=== PATIENT | male | born 1945 | race Caucasian/White ===

== ENCOUNTER 2021-12-07 09:48 | Outpatient (CLI) | payer MEDICARE, BC, SELFPAY ==
--- OUTSIDE RECORDS SUMMARY | 2021-12-07 09:51 | XMS_ITS | Clinical Summary ---
:1945 Author Organization [email or web address] [facility] [place] [address] Care Team Providers Name Role Phone Idris Merritt MD Primary Care Provider Allergies Active Allergy Reactions Severity Noted Date Comments Vardenafil Visual Disturbances 04/17/2010 Reported 04/17/2010; occurred 3 times.......... ...... Medications Medication Sig Dispensed Refills Start End Date Status Date multivitamin (MVI) tablet Take 1 tablet by 0 Active mouth once 0 daily. blood sugar diagnostic Dispense test 100 Each 3 Active (ACCU-CHEK KATRINA) strips covered 4 stripIndications: Type II by the patient or unspecified type insurance. Test diabetes mellitus without 1times per day. mention of complication, not stated as uncontrolled CPAPIndications: autoCPAP, heated 1 Device 0 Active Obstructive sleep apnea humidifier, 4 (adult) (pediatric) mask, headgear, filters and tubing. Pressure: 4-15cm/H2O Length of Need: 99 metFORMIN (GLUCOPHAGE) TAKE 1 TABLET BY 180 tablet 2 Active 1,000 mg MOUTH TWICE 7 tabletIndications: DAILY WITH MEALS Diabetes mellitus without complication (HC) amLODIPine (NORVASC) 5 mg Take 1 tablet by 60 tablet 0 01 Active tabletIndications: HTN mouth 2 times 7 (hypertension) daily. atorvastatin (LIPITOR) 20 Take 1 tablet by 90 tablet 0 01 Active mg tabletIndications: mouth once 8 Pure hypercholesterolemia daily. lisinopril (PRINIVIL; TAKE 1 TABLET BY 30 tablet 0 Active ZESTRIL) 40 mg MOUTH EVERY DAY 8 tabletIndications: HTN (hypertension) glipiZIDE TAKE 1 TABLET BY 30 tablet 0 Act [place] extended-release MOUTH EVERY DAY 8 (GLUCOTROL XL) 10 mg BEFORE A MEAL Extended-Release tabletIndications: Diabetes mellitus without complication (HC) furosemide (LASIX) 20 mg Take 0.5 tablets 45 tablet 3 12/17/19 1 Active tabletIndications: by mouth once 8 Bilateral lower extremity daily if needed edema for Other (Specify). CPAPIndications: AUGUST Replacement CPAP 1 Device 11 Active (obstructive sleep apnea) machine for home 0 use at pressure: 4-11 cmw , Heated humidifier x 1 q 5 yr, Humidifier chamber x 1 q 6 mo, Full face mask x1 q 3mos, with cushion x 2 q mo, chin strap q 2 mo, Heated tubing x 1 q 3 mo, Headgear x 1 q 6 mo, Filters: Disposable x 2 q mo non-disposable filters x1 q 6mo, Length of Need: 99 months, Frequency of use: Daily sildenafil citrate Take 1 tablet by 0 Active (VIAGRA) 25 mg tablet mouth once daily 0 if needed for Erectile Dysfunction. Take 30min to 4 hours before sexual activity. Max 100mg/24hr sotaloL (BETAPACE) 120 mg Take 1 Tablet 180 Tablet 3 Active tabletIndications: (120 mg) by 1 Ventricular tachycardia mouth every 12 (HC), Fitting or hours. adjustment of automatic implantable cardioverter-defibrillato r ranolazine (RANEXA) 500 Take 2 Tablets 360 tablet. 3 Active mg Controlled-Release (1,000 mg) by 1 tabletIndications: mouth 2 times Ventricular tachycardia daily. (HC) dilTIAZem CD (CARDIZEM Take 1 Capsule 90 capsule. 3 Active CD) 120 mg extended (120 mg) by 1 release 24 hr mouth once capsuleIndications: daily. Ventricular tachycardia (HC) Active Problems Problem Noted Date Adenomatous colon polyp 01/09/2016 Overview: Colonoscopy 01/2016 polyps repeat in 5 y ears Hyperlipidemia, unspecified 12/27/2015 ICD (implantable cardioverter-defibrillator) in place 05/22/2015 Ventricular tachycardia 05/12/2015 Overview: - 05/15/15 s/p EPS with VT ablation and du al chamber ICD Diabetes mellitus type 2 in obese 02/07/2015 AUGUST 11/08/2013 AHI- 23 12/04/2013 CAD (coronary artery disease) 10/29/2013 Cardiomyopathy 10/29/2013 ED (erectile dysfunction) 09/23/2013 Herpes, genital 09/11/2012 Overview: famvir 1000 mg three times daily 10 days ; to take same three times daily 3 days if/when recurrence. 09/11/2012 Psoriasis 09/07/2012 GERD (gastroesophageal reflux disease) 09/07/2012 Neuropathy 12/23/2011 Hx MRSA infection 08/26/2011 Bunion 08/26/2011 Overview: Left foot Other seborrheic keratosis 08/26/2011 Overview: Right cheek Left elbow 12/23/2011 Lung nodule 01/31/2009 Overview: Calcified Granuloma on CT Chest 11/2008. Apparently stable. 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 11/29/2008 Routine general medical examination at a [facility] y 08/10/2008 09/23/2013 Overview: colonoscopy 2005 Recheck 10 yrs Unspecified essential hypertension 10/14/200601/19 HYPERCHOLESTEROLEMIA 10/14/2006 12/27/2015 DIABETES 02/25/2002 02/07/2015 Immunizations Name Administration Dates Next Due Influenza, High-dose Inactivated 01/23/2015 Influenza, IIV3 (Age >=3 years) 12/23/2011 Influenza,CCIIV4 PRESERV FREE 01/17/2017 Pneumococcal conj 13-Valent (Prevnar 13) 04/25/2015 Tdap 08/10/2008 Zoster (Zostavax-ZVL, live) 01/31/2009 Family History Medical History Relation Name Comments Diabetes Brother [place] Stroke Brother [place] April 2010 Cancer-prostate Father [place] Diabetes Father [place] Anesthesia Problem No Family History Blood Disease No Family History Relation Name Status Comments Brother Vincent Alive Father Vincent (Age 66) Mother Keesha Alive Social History Tobacco Use Types Packs/Day Years Used Date Never Smoker Smokeless Tobacco: Never Used Tobacco Cessation: Counseling Given: Yes Alcohol Use Standard Drinks/Week Comments Yes 2 (1 standard drink = 0.6 oz pure alcoho l) 2-3 beers/week Alcohol Habits Answer Date Recorded How often do you have a drink containing alcohol? Not asked How many drinks containing alcohol do you have on a Not aske d typical day when you are drinking? How often do you have six or more drinks on one Not asked occasion? Comment: 2-3 beers/week 01/23/2016 Sex Assigned at Date Recorded Not on file Obstetrics History Last Filed Vital Signs Vital Sign Reading Time Taken Comments Blood Pressure 108/64 02/13/2021 11:24 AM HOME LENDING OFFICER Pulse 60 02/13/2021 11:24 AM HOME LENDING OFFICER Temperature 36.4 ??C (97.6 ??F) 05/11/2019 11:21 AM HOME LENDING OFFICER Respiratory Rate 18 05/17/2015 11:21 AM HOME LENDING OFFICER Oxygen Saturation 97% 01/18/2020 3:01 PM CDT Inhaled Oxygen Concentration - - Weight 99.3 kg (219 lb) 02/13/2021 11:24 AM HOME LENDING OFFICER Height 182.9 cm (6') 02/13/2021 11:24 AM HOME LENDING OFFICER Body Mass Index 29.7 02/13/2021 11:24 AM HOME LENDING OFFICER Plan of Treatment Upcoming Encounters Date Type Specialty Care Team Description 12/07/2021 Orders Only 01/15/2022 Cardiac Device Check Health Maintenance Due Date Last Done Comments Hepatitis C screening for age [birth year]11/24[birth year]1965 18-79 Mammogram for age 45-75 11/24/1992 Zoster (shingles) series for age 1203/28/2009 01/31/2009 50+ (2 of 3) DEXA/DXA scan for age 65+ 11/24/2012 Pneumococcal series for age 65+ (2 04/25/2016 04/25/2015 - PPSV23 or PCV20) Depression screening for age 12+ 07/11/2017 07/11/2016, 06/2015, 06/08/2015, Additional history exists Medicare Wellness for age 65+ 07/11/2017 07/11/2016 Tetanus booster 08/10/2018 08/10/2008 Colonoscopy through age 75 01/07/2019 01/08/2016, 6, 01/08/2016, Additional history exists COVID-19 vaccine series (3 - 12/15/2020 07/15/2020, 021 Booster for Pfizer series) Lipids for age 45-75 07/09/2021 07/09/2016, 01/01/2016, 07/04/2014, Additional history exists Influenza for age 65+ 12/06/2021 01/17/2017, 01/08/2016 (Completed outside of [facility]), 01/23/2015, Additional history exists BMI (ht and wt on same day) for 02/13/2022 02/13/2021, 12/06, age 18+ 03/25/2017, Additional history exists Tdap Completed 08/10/2008 Medical Devices Implanted Type Area Compliance Attorney Device Shelf Model / Identifier Expiration Date Ser ial / Lot Dual Chamber Mri Conditional Icd ICD Only Medtronic EVERA MRI XT [id number] / Implanted: 05/15/2015 by Sera Joseph MD (Quantity not on fi le) [id number] / Results Not on filefrom Last 3 Months Additional Health Concerns Infection Onset Date Last Indicated MRSAComment: Left Great Toe 10/06/08 at [facility] 10/10/2008 10/10/2008 [place] Insurance Payer Benefit Plan / Subscriber ID Effective Dates Phone Addre ss Type Group MEDICARE PART A MEDICARE PART A [id number] 2013-[employer] ATTN: CLAIMS - HB USE ONLY HB ONLY t [address] [place] [address] MEDICARE - PB MEDICARE PB [id number] 2019-Presen ATTN : CLAIMS USE ONLY ONLY t [address] [place] [address] BLUE CROSS BLUE CROSS OF [id number] 2019-Presen [address] [place] [phone] [phone] (Home) [phone] Mia [address]IRBY N 8 (Work) [phone] Advance Directives Latest Code Status on File Code Status Date Activated Date Inactivated Comments Full Code 05/12/2015 10:04 AM 05/17/2015 7:00 PM Full Code 05/11/2015 5:18 PM 05/12/2015 10:04 AM Care Teams Video Game Script Writer Relationship Specialty Start Date End Date Idris Merritt MD PCP - General Family Practice 06/24/171999 [address] [facility] [id number]
== END 2021-12-07 09:49 | disposition home or self-care (01) ==
LOC: RAD 09:50
PROVIDERS: PCP Family Medicine; Visit Provider Nurse Practitioner Family
DX: I49.3 Ventricular premature depolarization (principal); I47.2 Ventricular tachycardia; I51.7 Cardiomegaly; I34.0 Nonrheumatic mitral (valve) insufficiency
CPT/HCPCS: 93306

== ENCOUNTER 2021-12-25 10:21 | Outpatient (CLI) | payer MEDICARE, BC, SELFPAY ==
--- OUTSIDE RECORDS SUMMARY | 2021-12-25 08:12 | XMS_ITS | Clinical Summary ---
:1945 Author Organization [employer] [facility] [place] [address] Care Team Providers Name Role Phone Idris [...] Active tabletIndications: (120 mg) by 1 Ventricular tachycardia, mouth every 12 Fitting or adjustment of hours. automatic implantable cardioverter-defibrillato r ranolazine (RANEXA) 500 Take 2 Tablets 360 tablet. 3 Active mg Controlled-Release (1,000 mg) by 1 tabletIndications: mouth 2 times Ventricular tachycardia daily. dilTIAZem CD (CARDIZEM Take 1 Capsule 90 capsule. 3 Active CD) 120 mg extended (120 mg) by 1 release 24 hr mouth once capsuleIndications: daily. Ventricular tachycardia Active Problems Problem Noted Date Adenomatous colon [...] 11/29/2008 Routine general medical examination at a [facility] y 08/10/2008 09/23/2013 Overview: colonoscopy 2005 Recheck 10 yrs Unspecified essential hypertension 10/14/200601/19 HYPERCHOLESTEROLEMIA 10/14/2006 12/27/2015 DIABETES 02/25/2002 02/07/2015 Encounters Date Type Specialty Care Team Description 12/14/2021 Telephone Brittany Joseph MD Re sults 12/07/2021 Orders Only <No scans attac hed> from Last 3 Months Immunizations Name Administration Dates Next Due Influenza, High-dose Inactivated 01/23/2015 Influenza, IIV3 (Age >=3 years) 12/23/2011 Influenza,CCIIV4 PRESERV FREE 01/17/2017 Pneumococcal conj 13-Valent (Prevnar 13) 04/25/2015 Tdap 08/10/2008 Zoster (Zostavax-ZVL, live) 01/31/2009 Family History Medical History Relation Name Comments Diabetes Brother [place] Stroke Brother [place] April 2010 Cancer-prostate Father [place] Diabetes Father [place] Anesthesia Problem No Family History Blood Disease No Family History Relation Name Status Comments Brother [place] Alive Father [place] (Age 66) Mother Keesha Alive Social History [...] Comments Blood Pressure 108/64 02/13/2021 11:24 AM WORKDAY MANAGER Pulse 60 02/13/2021 11:24 AM WORKDAY MANAGER Temperature 36.4 ??C (97.6 ??F) 05/11/2019 11:21 AM WORKDAY MANAGER Respiratory Rate 18 05/17/2015 11:21 AM WORKDAY MANAGER Oxygen Saturation 97% 01/18/2020 3:01 PM CDT Inhaled Oxygen Concentration - - Weight 99.3 kg (219 lb) 02/13/2021 11:24 AM WORKDAY MANAGER Height 182.9 cm (6') 02/13/2021 11:24 AM WORKDAY MANAGER Body Mass Index 29.7 02/13/2021 11:24 AM WORKDAY MANAGER Plan of Treatment Upcoming Encounters Date Type Specialty Care Team Description 01/15/2022 Cardiac Device Check Health Maintenance Due [...] 65+ 12/06/2021 01/17/2017, 01/08/2016 (Completed outside of [facility]), 01/23/2015, Additional history exists BMI (ht and wt on same day) for 02/13/2022 02/13/2021, 12/06, age 18+ 03/25/2017, Additional history exists Tdap Completed 08/10/2008 Medical Devices Implanted Type Area Binder Lockstitch Device Shelf Model / Identifier Expiration Date Ser ial / Lot Dual Chamber Mri Conditional Icd ICD Only Medtronic EVERA MRI XT [id number] / Implanted: 05/15/2015 by Brittany Joseph MD (Quantity not on fi le) [id number] / Procedures Procedure Name Priority Date/Time Associated Diagnosis Comme nts ECHO COMPLETE WO Routine 12/07/2021 10:30 AM PVC (premature Re sults for this CONTRAST CDT ventricular procedure are i n contraction) the results Cardiomyopathy, section. unspecified type (HC) from Last 3 Months Results ECHO COMPLETE WO CONTRAST (12/07/2021 10:30 AM CDT) P athologist Signature AORTIC VALVE 5 mmHg MEAN PG EJECTION 55 % FRACTION PEAK TR 2.6 m/s VELOCITY LVEDD 5.9 cm EJECTION 55 - 60% FRACTION Anatomical Region Laterality Modality HEART Ultrasound Specimen (Source) Anatomical Collection Method Collection Time Re ceived Time Location / / Volume Laterality 12/07/2021 10:05 AM CDT Narrative 12/07/2021 10:56 AM CDT ECHOCARDIOGRAM HUMBERTO BLACKWELL ? Accessi on#: ?? [id number] : ?1945 76 years Study Date: ?? 12/07/2021 10:05:44 AM Gender: M ?BP: ? 133/73 mmHg Height: 183.00 cm ?BSA: ?2.20 m? ?? Weight: 98.00 kg ? Tech: ? MJW ? Referring MD: BRITTANY JOSEPH Site: ? [facility] Reading Location: Mobile[facility] Procedure: 2D, Color Doppler and Spectra l Doppler. Indication for study: PVC (premature franky tricular contraction) [I49.3 (ICD-10-CM)] Cardiomyopathy, unspecified type (HC) [I 42.9 (ICD-10-CM)] Cardiac Rhythm: Regular and with prematu re ventricular contractions.Study quality: Good. Final Impressions: 1. Mildly increased LV size, borderline wall thickness, normal global systolic function with an estimated EF of 55 - 60%. 2. Grade 2 pattern of LV diastolic fill ing. 3. Mildly enlarged left atrium. 4. The aortic valve is normal, no steno sis and no regurgitation. 5. The mitral valve is normal, trace mi tral regurgitation. Chamber Sizes and Function Mildly increased left ventricular size, borderline wall thickness, normal global systolic function with an estimated EF of 55 - 60%. No definite resting regional wall motion abnormality seen. Left atria l size is mildly enlarged. Right ventric ular cavity size is normal, global systolic RV function is normal. RV wall thickness is normal. The right atrium is normal. Right atrial volume index is 19 ml/m? ??. Right atrial area is 14 cm? ??. The pulmonary artery is of normal size and origin. The sinus of Valsalva is normal sized. The ascending aorta is normal sized. Valves, RV Pressures and Diastolic Funct ion The aortic valve is normal in structure, no stenosis and no regurgitation. The mitral valve is normal in structure, trace mitral regurgitation. Moderate mitral annular calcification is present. Spectral Doppler shows Grade 2 pattern of LV sadiq stolic filling. The tricuspid valve is normal in structure. Tricuspid regurgitation is mild regurgitation. The tricuspid regurgitant velocity is 2.6 m/s, the romero mated right ventricular systolic pressur e is 27 mmHg plus right atrial pressure. The pulmonic valve is normal. Trace pulmonary regurgitation. Masses, Effusion, Shunts There is no pericardial effusion. The in ferior vena cava is normal sized, respiratory size variation greater than 50%. No left to right shunting was detected by limited color flow Doppler interrogation of the interatrial septum. MEASUREMENTS AND CALCULATIONS 2-D Measurements and LV Function: LVID (d) 5.9 cm LV FS% (2D) ?? 26 % LVID (s) 4.3 cm LVOT diameter 2.5 cm IVS (d) ??1.2 cm HR ?80 bpm LVPW (d) 0.9 cm LA Vol index ??35 ml/m2 Ao Sinus 3.3 cm RA Vol index ??19 ml/m2 Asc Ao ?? 3.8 cm RA area ? 14 cm? ?? LA ? 4.3 cm RV Max 4C (d) 3.8 cm Diastology: Mitral ?Tissue Doppler ?Pulmonary veins E Peak 0.9 m/s ??e', Septum ? 0.05 m /s Pulm s ?60.3 cm/s A Peak 0.8 m/s ??e', Lateral ?0.10 m /s Pulm d ?70.2 cm/s E/A ?1.2 ?E/e' Average ?? 12. 39 ?Pulm s/d ratio ??0.86 DT ? 209 msec IVRT ?? 91 msec Aortic Valve: Vmax ? 1.3 m/s ??MIRI (V) ?? 3.14 cm? ?? VTI ?0.35 m ?? MIRI (I ) ?? 3.13 cm? ?? LVOT V max ? 0.9 m/s ??Max PG ?7 mmHg LVOT VTI ? 0.22 m ?? Mean PG ? ? 5 mmHg SV ? 109 ml ?? Dim In dex 0.64 SV index ? 49 ml/m? ?? CO ?8.7 l/min AV Ejection Time 0.36 sec CI ? 3.9 l/min/m? ?? AV Flow Rate ? 304 ml/s Mitral Valve: MVA ?3.6 cm? ?? MV P 1/2 61 msec Tricuspid Valve and estimated PA pressur es: TR Vmax 2.6 m/s TAPSE 2.5 cm TR maxG 27 mmHg . This study was interpreted by an [facility] redited facility. CC: [facility]. ??Final ?? Procedure Note Darvin Rizzo MD - 12/07/2021 ECHOCARDIOGRAM HUMBERTO BLACKWELL : 1945 76 years Study Date: 2021 10:05:44 AM Gender: M BP: 133/73 mmHg Height: 183.00 cm BSA: 2.20 m? ?? Weight: 98.00 kg Tech: KAE Referring MD: BRITTANY JOSEPH Site: [facility] Reading Location: Mobile[facility] Procedure: 2D, Color Doppler and Spectra l Doppler. Indication for study: PVC (premature franky tricular contraction) [I49.3 (ICD-10-CM)] Cardiomyopathy, unspecified type (HC) [I 42.9 (ICD-10-CM)] Cardiac Rhythm: Regular and with prematu re ventricular contractions.Study quality: Good. Final Impressions: 1. Mildly increased LV size, borderline wall thickness, normal global systolic function with an estimated EF of 55 - 60%. 2. Grade 2 pattern of LV diastolic fill ing. 3. Mildly enlarged left atrium. 4. The aortic valve is normal, no steno sis and no regurgitation. 5. The mitral valve is normal, trace mi tral regurgitation. Chamber Sizes and Function Mildly increased left ventricular size, borderline wall thickness, normal global systolic function with an estimated EF of 55 - 60%. No definite resting regional wall motion abnormality seen. Left atrial size is mildly enlarged. Right ventricular cavity size is normal, global systolic RV function is normal. RV wall thickness is normal. The right atrium is normal. Right atrial volume index is 19 ml/m? ??. Right atrial area is 14 cm? ??. The pulmonary artery is of normal size and origin. The sinus of Valsalva is normal sized. The ascending aorta is normal sized. Valves, RV Pressures and Diastolic Funct ion The aortic valve is normal in structure, no stenosis and no regurgitation. The mitral valve is normal in structure, trace mitral regurgitation. Moderate mitral annular calcification is present. Spectral Doppler shows Grade 2 pattern of LV diastolic filling. The tricuspid valve is normal in structure. Tricuspid regurgitation is mild regurgitation. The tricuspid regurgitant velocity is 2.6 m/s, the estimated right ventricular systolic pressure is 27 mmHg plus right atrial pr essure. The pulmonic valve is normal. Trace pulmonary regurgitation. Masses, Effusion, Shunts There is no pericardial effusion. The in ferior vena cava is normal sized, respiratory size variation greater than 50%. No left to right shunting was detected by limited color flow Doppler interrogation of the interatrial septum. MEASUREMENTS AND CALCULATIONS 2-D Measurements and LV Function: LVID (d) 5.9 cm LV FS% (2D) 26 % LVID (s) 4.3 cm LVOT diameter 2.5 cm IVS (d) 1.2 cm HR 80 bpm LVPW (d) 0.9 cm LA Vol index 35 ml/m2 Ao Sinus 3.3 cm RA Vol index 19 ml/m2 Asc Ao 3.8 cm RA area 14 cm? ?? LA 4.3 cm RV Max 4C (d) 3.8 cm Diastology: Mitral Tissue Doppler Pulmonary veins E Peak 0.9 m/s e', Septum 0.05 m/s Pulm s 60.3 cm/s A Peak 0.8 m/s e', Lateral 0.10 m/s Pulm d 70.2 cm/s E/A 1.2 E/e' Average 12.39 Pulm s/d rati o 0.86 DT 209 msec IVRT 91 msec Aortic Valve: Vmax 1.3 m/s MIRI (V) 3.14 cm? ?? VTI 0.35 m MIRI (I) 3.13 cm? ?? LVOT V max 0.9 m/s Max PG 7 mmHg LVOT VTI 0.22 m Mean PG 5 mmHg SV 109 ml Dim Index 0.64 SV index 49 ml/m? ?? CO 8.7 l/min AV Ejection Time 0.36 sec CI 3.9 l/min/m ? ?? AV Flow Rate 304 ml/s Mitral Valve: MVA 3.6 cm? ?? MV P 1/2 61 msec Tricuspid Valve and estimated PA pressur es: TR Vmax 2.6 m/s TAPSE 2.5 cm TR maxG 27 mmHg . This study was interpreted by an [facility] facility. CC: [facility]. Final Brittany Joseph MD ECHO ORD from Last 3 Months Additional Health Concerns Infection Onset Date Last Indicated MRSAComment: Left Great Toe 10/06/08 at [facility] 10/10/2008 10/10/2008 [place] Insurance Payer Benefit Plan / Subscriber ID Effective Dates Phone Addre ss Type Group MEDICARE PART A MEDICARE PART A [id number] 2013-Presen ATTN: CLAIMS - HB USE ONLY HB ONLY t [address] [place] [address] MEDICARE - PB MEDICARE PB [id number] 2019-Presen ATTN : CLAIMS USE ONLY ONLY t [address] [place] [address] BLUE CROSS BLUE CROSS OF [id number] 2019-Presen [address] [facility] [place] [place] [address] [phone] (Home) [phone] Mia [address] (Work) [phone] Advance Directives Latest Code Status on File Code Status Date Activated Date Inactivated Comments Full Code 05/12/2015 10:04 AM 05/17/2015 7:00 PM Full Code 05/11/2015 5:18 PM 05/12/2015 10:04 AM Care Teams Low Altitude Air Defense Officer Relationship Specialty Start Date End Date Idris Merritt MD PCP - General Family Practice 06/24/171999 [place] [id number]
[2021-12-25 11:04] LABS: Albumin* 4.4 g/dL (3.3-5.0); Chloride* 103 mmol/L (96-114)
[2021-12-25 11:05] LABS: Potassium* 4.6 mmol/L (3.6-5.1); Sodium* 139 mmol/L (135-149)
[2021-12-25 11:07] LABS: Bilirubin Total* 0.7 mg/dL (0.1-1.5); Blood Urea Nitrogen* 19 mg/dL (7-30); Carbon Dioxide* 27 mmol/L (20-32); Cholesterol* 137 mg/dL (90-199); Creatinine* 1.1 mg/dL (0.5-1.5); Estimated Glomerular Filt Rate 70 ml/min; Total Protein* 6.5 g/dL (6.0-8.3)
[2021-12-25 11:08] LABS: Alanine Aminotransferase* 18 U/L (4-50); Alkaline Phosphatase* 105 U/L (40-150); Aspartate Amino Transferase* 20 U/L (12-35); Calcium* 9.2 mg/dL (8.4-10.6); Glucose* 198 mg/dL (60-115); HDL Cholesterol* 65 mg/dL (>=40); LDL Cholesterol Calculated 50 mg/dL (<100); Triglycerides* 109 mg/dL (40-149)
[2021-12-25 11:12] LABS: Creatinine Urine 71.3 mg/dL
[2021-12-25 11:16] LABS: Microalbumin Creatinine Ratio 50 mg/g (0-30); Microalbumin Urine 4 mg/dL
[2021-12-25 11:35] LABS: PSA Screen* < 0.06 ng/mL (0.10-4.00)
== END 2021-12-25 10:22 | disposition home or self-care (01) ==
PROVIDERS: PCP Family Medicine; Visit Provider Family Medicine
DX: Z00.00 Encounter for general adult medical examination without abnormal findings (principal); E78.5 Hyperlipidemia, unspecified; C61 Malignant neoplasm of prostate; E11.9 Type 2 diabetes mellitus without complications; I10 Essential (primary) hypertension; R68.82 Decreased libido
CPT/HCPCS: 80053; 80061; 82043; 82570; 84153

== ENCOUNTER 2022-12-26 08:26 | Outpatient (CLI) | payer MEDICARE, SELFPAY | END 2022-12-26 08:27 | disposition home or self-care (01) | LOC: NFLDREF 12-30 13:05 | PROVIDERS: PCP Family Medicine; Referring Provider Family Medicine; Visit Provider Family Medicine | DX: E78.5 Hyperlipidemia, unspecified (principal); R53.83 Other fatigue; E11.9 Type 2 diabetes mellitus without complications; C61 Malignant neoplasm of prostate | CPT/HCPCS: 80053; 80061; 82043; 82570; 84153; 84443 ==

== ENCOUNTER 2023-10-06 07:51 | Outpatient (CLI) | payer MEDICARE, SELFPAY ==
--- OUTSIDE RECORDS SUMMARY | 2023-10-06 07:55 | XMS_ITS | Clinical Summary ---
Author Organization [facility] Address [place], [place] [address] Care Team Providers Care Technical Solution Architect Name Role Phone Idris Merritt MD Primary Care Provider [phone] Allergies Active Allergy Reactions Criticality Noted Date Comments Vardenafil Visual Disturbances 04/17/2010 Reported 04/17/2010; occurred 3 times................ Medications Medication Sig Dispensed Refills Start Date End Date Status multivitamin (MVI) tablet Take 1 tablet by mouth once daily. 0 0 Active blood sugar diagnostic (ACCU-CHEK KATRINA) stripIndications:Type II or unspecified type diabetes mellitus without mention of complication, not stated as uncontrolled Dispense test strips covered by the patient insurance. Test 1times per day. 100 Each 3 4 Active metFORMIN (GLUCOPHAGE) 1,000 mg tabletIndications:Diabete s mellitus without complication (HC) TAKE 1 TABLET BY MOUTH TWICE DAILY WITH MEALS 180 tablet 2 7 Active amLODIPine (NORVASC) 5 mg tabletIndications:HTN (hypertension) Take 1 tablet by mouth 2 times daily. 60 tablet 7 Active atorvastatin (LIPITOR) 20 mg tabletIndications:Pure hypercholesterolemia Take 1 tablet by mouth once daily. 90 tablet 8 Active lisinopril (PRINIVIL; ZESTRIL) 40 mg tabletIndications:HTN (hypertension) TAKE 1 TABLET BY MOUTH EVERY DAY 30 tablet 8 Active glipiZIDE extended-release (GLUCOTROL XL) 10 mg Extended-Release tabletIndications:Diabete s mellitus without complication (HC) TAKE 1 TABLET BY MOUTH EVERY DAY BEFORE A MEAL 30 tablet 8 Active furosemide (LASIX) 20 mg tabletIndications:Bilater al lower extremity edema Take 0.5 tablets by mouth once daily if needed for Other (Specify). 45 tablet 3 8 Active sildenafil citrate (VIAGRA) 25 mg tablet Take 1 tablet by mouth once daily if needed for Erectile Dysfunction. Take 30min to 4 hours before sexual activity. Max 100mg/24hr 0 0 Active CPAPIndications:Obstructi ve sleep apnea CPAP machine for home use at pressure: 11 cmw , Heated humidifier x 1 q 5 yr, Humidifier chamber x 1 q 6 mo, Full face mask x1 q 3mos, with cushion x 1 q mo, Heated tubing x 1 q 3 mo, Headgear x 1 q 6 mo, Filters: Disposable x 2 q mo non-disposable filters x1 q 6mo, Length of Need: 99 months, Frequency of use: Daily 1 Each 11 3 Active dilTIAZem CD (CARDIZEM CD) 120 mg extended release 24 hr capsuleIndications:Ventri cular tachycardia (HC) Take 1 Capsule (120 mg) by mouth once daily. 90 Capsule 3 3 Active ranolazine (RANEXA) 500 mg Controlled-Release tabletIndications:Ventric ular tachycardia (HC) Take 1 Tablet (500 mg) by mouth two times daily. 180 Tablet 3 3 Active sotaloL (BETAPACE) 120 mg tabletIndications:Ventric ular tachycardia (HC),Fitting or adjustment of automatic implantable cardioverter-defibrillato r Take 1 Tablet (120 mg) by mouth every 12 hours. 180 Tablet 3 3 Active Active Problems Problem Noted Date Diagnosed Date Adenomatous colon polyp 01/09/2016 Overview: Colonoscopy 01/2016 polyps repeat in 5 years Hyperlipidemia, unspecified 12/27/2015 ICD (implantable cardioverter-defibrillator) in place 05/22/2015 Ventricular tachycardia 05/12/2015 Overview: - 05/15/15 s/p EPS with VT ablation and dual chamber ICD Diabetes mellitus type 2 in obese 02/07/2015 AUGUST 11/08/2013 AHI- 23 12/04/2013 CAD (coronary artery disease) 10/29/2013 Cardiomyopathy 10/29/2013 ED (erectile dysfunction) 09/23/2013 Herpes, genital 09/11/2012 Overview: famvir 1000 mg three times daily 10 days; to take same three times daily 3 days if/when recurrence. 09/11/2012 Psoriasis 09/07/2012 GERD (gastroesophageal reflux disease) 3 Neuropathy 12/23/2011 Hx MRSA infection 08/26/2011 Bunion 08/26/2011 Overview: Left foot Other seborrheic keratosis 08/26/2011 Overview: Right cheek Left elbow 12/23/2011 Lung nodule 01/31/2009 Overview: Calcified Granuloma on CT Chest 11/2008. Apparently stable. 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 11/29/2008 Routine general medical exam ination at a health care facility 08/10/2008 09/23/2013 Overview: colonoscopy 2004 Recheck 10 yrs Unspecified essential hypertension 10/14/2006 01/19/2015 HYPERCHOLESTEROLEMIA 10/14/2006 016 DIABETES 02/25/2002 02/07/2015 Encounters Date Type Department Care Team Description 09/05/2023 Telephone [facility] [address] [place] [address] Sera Joseph MD Diagnostic Testing from Last 3 Months Immunizations Name Administration Dates Next Due Influenza, High-dose Inactivated 01/23/2015 Influenza, IIV3 (Age >=3 years) 12/23/2011 Influenza,CCIIV4 PRESERV FREE 01/17/2017 Pneumococcal conj 13-Valent (Prevnar 13) 016 Tdap 08/10/2008 Zoster (Zostavax-ZVL, live) 01/31/2009 Family History Medical History Relation Name Comments Diabetes Brother [place] Stroke Brother [place] April 2010 Cancer-prostate Father [place] Diabetes Father Vincent Anesthesia Problem No Family History Blood Disease No Family History Relation Name Status Comments Brother Vincent Alive Father Vincent (Age 66) Mother Keesha Alive Social History Tobacco Use Types Packs/Day Years Used Date Smoking Tobacco: Never Smokeless Tobacco: Never Tobacco Cessation:Counseling Given: Yes Alcohol Use Standard Drinks/Week Comments Yes 2 (1 standard drink = 0.6 oz pur e alcohol) 2-3 beers/week Social Connections Answer Date Recorded Frequency of Communication with Friends and Fami ly Not on file 04/07/2021 Financial Resource Strain Answer Date R ecorded Difficulty of Paying Living Expenses Not on file 04/07/2021 Difficulty of Paying Living Expenses Not on file 04/07/2021 Sex and Gender Information Value Date Recorded Sex Assigned at Not on file Gender Identity Not on file Sexual Orientation Not on file Obstetrics History Last Filed Vital Signs Vital Sign Reading Time Taken Comments Blood Pressure 142/78 12/17/2022 11:26 AM CDT Pulse 60 12/17/2022 11:26 AM CDT Temperature 36.4 ??C (97.6 ??F) 05/11/2019 1 1:21 AM PHARMACOGNOSIST Respiratory Rate 18 05/17/2015 11:2 1 AM PHARMACOGNOSIST Oxygen Saturation 99% 12/17/2022 11: 26 AM CDT Inhaled Oxygen Concentration - - Weight 100.6 kg (221 lb 11.2 oz) 2022 11:26 AM CDT Height 182.9 cm (6' 0.01) 12/17/2022 1 1:26 AM CDT Body Mass Index 30.06 12/17/2022 11:26 AM CDT Plan of Treatment Upcoming Encounters Date Type Department Care Team (Late st Contact Info) Description 10/06/2023 8:00 AM CDT Ancillary Procedure [facility] [address] [place] [address] 10/21/2023 3:00 PM CDT Cardiac Device Check [facility] [place] [address], [place] [address] 10/21/2023 3:40 PM CDT Office Visit [facility] [address] [place], [place] [id number] Angi Burns NP [address] [place] [address] Health Maintenance Due Date Last Done Comments Hepatitis C screening for ag e 18-79 11/24/1963 Zoster (shingles) series for age 50+ (2 of 3) 03/28/2009 01/31/2009 DEXA/DXA scan for age 65+ 11/24/2012 Pneumococcal series for age 65+ (2 of 2 - PPSV23 or PCV20) 06/20/2015 04/25/2015 Depression screening for age 12+ 07/11/2017 07/11/2016, 06/08/2015, 06/08/2015, Additional history exists Medicare Wellness for age 65+ 07/12/2017 07/11/2016 Tetanus booster 08/10/2018 08/10/2008 Colonoscopy through age 75 01/07/201901/07, 01/08/2016, 01/08/2016, Additional history exists Lipids for age 45-75 07/09/2021 07/09/2016, 01/01/2016, 07/04/2014, Additional history exists COVID-19 vaccine series ( season) 2022 07/15/2020, 06/24/2020 Influenza for age 65+ 12/07/2023 01/17/2017 , 01/08/2016 ([facility] of [facility]), 01/23/2015, Additional history exists BMI (ht and wt on same day) for age 18+ 12/18/2023 12/17/2022, 02/13/2021, 12/16/2017, Additional history exists Tdap Completed 08/10/2008 Medical Devices Implanted Type Area Rn Clinical Resource Device Identifier Shelf Expiration Date Model / Serial / Lot Dual Chamber Mri Conditional Icd Implanted: 016 by Sear Joseph MD (Quantity not on file) ICD Only [employer] EVERA MRI XT [id number] / [id number] / Procedures Procedure Name Priority Date/Time Associated Diagnosis Comments LIPID PANEL W REFLEX MEASURED LDL Routine 07/09/2016 10:20 AM CDT Hyperlipidemia, unspecified SCAN-COLONOSCOPY 01/08/2016 12:0 0 AM CDT from Last 3 Months or Most Recently Relevant to Health Maintenance Results * LIPID PANEL W REFLEX MEASURED LDL (07/09/2016 10:20 AM CDT) CHOLESTEROL,TOTAL 147 100 - 199 mg/dL 07/09/2016 10:45 AM CDT [facility] TRIGLYCERIDES 114 <150 mg/dL 07/09/2016 10:45 AM CDT [facility] HDL CHOLESTEROL 54 >40 mg/dL 7 10:45 AM CDT [facility] NON-HDL CHOLESTEROL 93 <145 mg/dl 07/09/2016 10:45 AM CDT [facility] CHOL/HDL RATIO 2.72 <4.50 07/09/2016 10:45 AM CDT [facility] LDL CHOLESTEROL 70 <=130 mg/dL 07/09/2016 10:45 AM CDT [facility] PATIENT STATUS FASTING 07/09/2016 10:45 AM CDT [facility] Blood BLOOD SPECIMEN / Unknown Venipuncture / Unknown 07/09/2016 10:20 AM CDT 07/09/2016 10:20 AM CDT Rosalino Giraldo MD CHEMISTRY [facility] [address] [place], [place] [address] [phone] * SCAN-COLONOSCOPY (01/08/2016 12:00 AM CDT) Scanner OTHER from Last 3 Months or Most Recently Relevant to Health Maintenance Additional Health Concerns Infection Onset Date Last Indicated MRSA Comment:Left Great Toe 10/06/08 at [facility] 10/10/2008 10/10/2008 Advance Directives * Full Code (Latest Code Status on File) Date Activated Date Inactivated Comments 05/12/2015 10:04 AM 05/17/2015 7:00 PM * Full Code Date Activated Date Inactivated Comments 05/11/2015 5:18 PM 05/12/2015 10:04 AM Care Teams Technical Solution Architect Relationship Specialty Start Date End Date Idris Merritt MD [address] [place] [phone] PCP - General Family Practice 06/24/17
== END 2023-10-06 07:52 | disposition home or self-care (01) ==
PROVIDERS: PCP Family Medicine
DX: I47.20 Ventricular tachycardia, unspecified (principal); I51.7 Cardiomegaly
CPT/HCPCS: 93225; 93226; 93306